=== PATIENT | female | born 1945 | race Caucasian/White ===

== ENCOUNTER → 2016-07-02 | Outpatient (CLI) | payer OTHER | LOC: CIMAGING 09:43 | DX: Z12.31 Encounter for screening mammogram for malignant neoplasm of breast (principal) | CPT/HCPCS: G0202 ==

== ENCOUNTER 2017-03-10 02:13 | Emergency (ER) | payer OTHER ==
[2017-03-10] MEDS ORDERED: ASPIRIN 81 MG CHEWABLE TAB PO ONE (02:15)
--- NOTE | 2017-03-10 02:20 | CPEKG ---
Heart Rate: 87 RR Interval: 690 P-R Interval: 156 QRSD Interval: 86 QT Interval: 368 QTC Interval: 443 P [place]: 56 QRS [place]: 9 T Wave [place]: 55 EKG Severity - NORMAL ECG - EKG Impression: SINUS RHYTHM Electronically Signed By: Marycarmen Alan 10-Mar-2017 04:16:17
[2017-03-10 02:39] LABS: % IMMATURE GRANULYOCYTES 0.7 % (0.0-1.1); ABSOLUTE IMMATURE GRANULOCYTES 0.07 10^3/uL (0.00-0.10); ADD DIFF? NO; ADD MORPH? NO; ADD SCAN? NO; ATYPICAL LYMPHOCYTE FLAG 10 (0-99); FRAGMENT RBC FLAG 0 (0-99); LEFT SHIFT FLG 10 (0-99); LIPEMIA HEMOLYSIS FLAG 80 (0-99); MEAN CELL HEMOGLOBIN 28.1 pg (27.9-34.1); MEAN CELL HEMOGLOBIN CONCENTR. 33.3 g/dL (32.4-36.7); MEAN CELL VOLUME 84.4 fL (81.5-99.8); MEAN PLATELET VOLUME 9.2 fL (8.7-11.7); PLATELET CLUMPS FLAG 10 (0-99); PLATELET COUNT 358 10^3/uL (150-400); RED BLOOD CELL COUNT 4.62 10^6/uL (4.18-5.33)
[2017-03-10 02:53] LABS: ALANINE AMINOTRANSFERASE 48 IU/L (9-52); ALBUMIN 3.5 g/dL (3.5-5.0); ALKALINE PHOSPHATASE 89 IU/L (38-126); ANION GAP 15 mEq/L (8-16); ASPARTATE AMINOTRANSFERASE 23 IU/L (14-46); BILIRUBIN,TOTAL 0.3 mg/dL (0.1-1.4); BILIRUBIN-UNCONJUGATED 0.3 mg/dL (0.0-1.1); CALCIUM 9.1 mg/dL (8.5-10.4); CARBON DIOXIDE 21 mEq/l (22-31); CHLORIDE 104 mEq/L (97-110); CREATININE 0.9 mg/dL (0.6-1.0); GLOMERULAR FILTRATION RATE > 60; GLUCOSE 123 mg/dL (70-100); POTASSIUM 4.4 mEq/L (3.5-5.2); SODIUM 140 mEq/L (134-144); TOTAL PROTEIN 6.7 g/dL (6.3-8.2)
[2017-03-10] MEDS ORDERED: NS 1,000 ML IV ONE (02:56)
[2017-03-10 03:03] LABS: TROPONIN I < 0.012 ng/mL (0.000-0.034)
[2017-03-10] MEDS ORDERED: IOPAMIDOL (ISOVUE 370) 100 ML BTL IV ONE (03:03)
--- NOTE | 2017-03-10 03:03 | EDPHY ---
H & P Stated Complaint: L sided chest pain, SOB that woke her up this AM. Time Seen by Provider: 03/10/17 02:15 HPI/ROS: CC: Chest pain HPI: This 72-year-old female with past medical history of hypertension, gastroesophageal reflux disease, asthma and recent diagnosis of the flu presents to emergency department today with complaints of left-sided chest discomfort that woke her from sleep at 1:15 a.m.. She states she has been coughing quite a bit over the last 2 weeks and the cough has been productive of thick, yellow sputum. The cough has gotten worse over the last couple of days. The chest pain is described as sharp which increases with breathing (7/10). It radiates to the top of her left shoulder. She feels slightly short of breath with this discomfort. The pain is rated at 4/10 at rest. She had a fever when she was diagnosed with the flu 2 weeks ago but that has resolved. She has not had any nausea or vomiting. She has not had diaphoresis. She has had no prior episodes of this sort. She has no prior history of coronary artery disease and no family history of premature coronary artery disease. She did have a lengthy trip to [facility] in January but denies having any leg swelling or pain. REVIEW OF SYSTEMS: Constitutional: No fever, no chills. Eyes: No discharge. ENT: No sore throat. Respiratory: HPI. Cardiac: No palpitations. Gastrointestinal: No abdominal pain, no vomiting. Genitourinary: No dysuria. Musculoskeletal: No back pain. Skin: No rashes. Neurological: No headache. Source: Patient, Family Exam Limitations: No limitations - Personal History Current Tetanus Diphtheria and Acellular Pertussis (TDAP): Unsure - Medical/Surgical History PMH: PMH: Includes Meniere's disease, asthma, hypertension, gastroesophageal reflux disease, allergies PSH: Includes hernia repair, tubal ligation, bowel obstruction, hysterectomy, cosmetic surgery, Osei's neuroma, colonoscopy FH: Her father had congestive heart failure and his 60s but no premature coronary artery disease. Mother had hypertension and dementia Allergies to latex, and peanuts. She was told she had an allergy to penicillin when she was 14 years old. Medication list brought by patient was reviewed. Includes Zyrtec, pantoprazole , Advair, ProAir, lisinopril, bupropion, hydrochlorothiazide, ipratropium bromide, Orthovisc, Astelin, fluticasone, glucosamine, calcium carbonate, MiraLax, Mucinex, fish oil, vitamin-D, probiotic Primary care providers Dr. Anamika Monroe Hx Asthma: Yes Hx Chronic Respiratory Disease: Yes Hx Diabetes: No Hx Cardiac Disease: Yes Hx Renal Disease: No Hx Cirrhosis: No Hx Alcoholism: No Hx HIV/AIDS: No Hx Splenectomy or Spleen Trauma: No Other PMH: hyst, bowel obstruction, HTN, asthma, Osei's neuroma, tubal ligation, hernia, shingles, PNA, depression, GERD - Family History Significant Family History: Heart disease, Hypertension - Social History Smoking Status: Never smoked Alcohol Use: Other (a couple glasses of wine 2-3x/wk) Drug Use: None - Physical Exam Exam: General Appearance: Alert, mild distress. Eyes: Pupils equal and round no pallor or injection. ENT, Mouth: Mucous membranes are slightly dry. Respiratory: There are no retractions, lungs are clear to auscultation. Cardiovascular: Regular rate and rhythm. Gastrointestinal: Abdomen is soft and nontender, no masses, bowel sounds normal. Neurological: Awake and alert, sensory and motor exams grossly normal. Skin: Warm and dry, no rashes. Musculoskeletal: Neck is supple nontender. Extremities are symmetrical, full range of motion. No swelling or erythema. Psychiatric: Patient is oriented X 3, there is no agitation. DIFFERENTIAL DIAGNOSIS: After history and physical exam differential diagnosis was considered for but not limited to: cardiac ischemia, bronchitis, pneumonia , pleurisy, PE Constitutional: Initial Vital Signs Temperature (C) 97.7 F 03/10/17 02:15 Heart Rate 89 03/10/17 02:15 Respiratory Rate 20 03/10/17 02:15 Blood Pressure 178/91 H 03/10/17 02:15 O2 Sat (%) 95 03/10/17 02:15 O2 Delivery Mode Nasal Cannula O2 (L/minute) 2 Allergies/Adverse Reactions: Penicillins Allergy (Verified 03/10/17 02:23) Home Medications: Medication Instructions Recorded Azelastine [Astelin Nasal [place] 1 sprays NASAL BID 08/14/11 (RX)] Fluticasone Nasal [Flonase Nasal 08/14/11 [place] (RX)] Fluticasone/Salmeter 250/50Mcg 1 inh IH BID 08/14/11 [Advair 250/50 (RX)] Lisinopril [Zestril 2.5 mg (*)] 08/14/11 Pantoprazole Sodium [Protonix 40mg 08/14/11 (RX)] buPROPion [Wellbutrin (RX)] 08/14/11 Albuterol Sulfate [Proair Hfa] 8.5 gm IH 03/10/17 Calcium Carb W/Vit D [Calcium Carb 03/10/17 W/Vit D 500/200 (*)] Cetirizine [ZyrTEC 10 mg (*)] 10 mg PO DAILY 03/10/17 Cholecalciferol (Vitamin D3) 03/10/17 [Vitamin D3] Doxycycline Hyclate [Vibramycin 100 mg PO BID 10 Days #18 cap 03/10/17 100 MG (*)] Fluticasone/Salmeter 250/50Mcg 03/10/17 [Advair 250/50 (*)] Glucosamine Sulfate Dipot Chlr 03/10/17 [Glucosamine] Hyaluronate Sodium [Orthovisc] 03/10/17 Ipratropium [place] [IPRATROPIUM 03/10/17 BROMIDE] L.acidoph,Paracasei, B.lactis 03/10/17 [Probiotic] [place]-3 Fatty Acids/Fish Oil [Fish 03/10/17 Oil 1,000 mg Capsule] Polyethylene Glycol 3350 [Miralax 03/10/17 17 gm (*)] guaiFENesin [Mucinex 600 MG (*)] 03/10/17 Medical Decision Making - Diagnostics EKG Interpretation: Normal sinus rhythm, heart rate 87, no acute ischemic changes. Imaging Results: Chest x-ray shows a possible infiltrate near the left heart border. CTPA: Imaging: Discussed imaging studies w/ call center specialist Radiologist (Verbal report for the CT pulmonary angiogram revealed no pulmonary embolism but was positive for multifocal pneumonia with a minimal left pleural effusion and mucus plugging), I viewed and interpreted images myself ED Course/Re-evaluation: The patient was seen and examined. Vital signs reviewed. Her oxygen saturation was 94% on room air. Her heart rate was in the 80s. Her blood pressure was within normal limits. EKG revealed normal sinus rhythm without acute ischemic changes. Her troponin was normal. Her CBC was only minimally elevated. Her D-dimer was markedly elevated and therefore CT pulmonary angiogram was ordered. There is no PE but it did show multifocal pneumonia with a minimal left pleural effusion a mucous plugging. Her PSI score was 71 which makes her low risk but either a short inpatient stay or outpatient treatment are acceptable recommendations. The patient was offered admission however she declined feeling well enough to go home. She was given a dose of Rocephin in the emergency department, a take-home pack of doxycycline with instructions not to take within 2 hr of her calcium supplements. She was given a prescription for another 18 tablets of doxycycline. For course of 10 days. She will follow up with the primary care provider this week or return to the emergency room sooner if symptoms worsen as discussed. - Data Points Laboratory Results: Laboratory Results 03/10/17 02:20 03/10/17 02:20 03/10/17 03/10/17 03/10/17 02:20 02:20 02:20 WBC 10.63 10^3/uL H 10^3/uL (3.80-9.50) RBC 4.62 10^6/uL 10^6/uL (4.18-5.33) Hgb 13.0 g/dL g/dL (12.6-16.3) Hct 39.0 % % (38.0-47.0) MCV 84.4 fL fL (81.5-99.8) MCH 28.1 pg pg (27.9-34.1) MCHC 33.3 g/dL g/dL (32.4-36.7) RDW 14.0 % % (11.5-15.2) Plt Count 358 10^3/uL 10^3/uL (150-400) MPV 9.2 fL fL (8.7-11.7) Neut % (Auto) 72.7 % % (39.3-74.2) Lymph % (Auto) 17.1 % % (15.0-45.0) [place] % (Auto) 8.3 % % (4.5-13.0) Eos % (Auto) 0.8 % % (0.6-7.6) Baso % (Auto) 0.4 % % (0.3-1.7) Nucleat RBC Rel Count 0.0 % % (0.0-0.2) Absolute Neuts (auto) 7.74 10^3/uL H 10^3/uL (1.70-6.50) Absolute Lymphs (auto) 1.82 10^3/uL 10^3/uL (1.00-3.00) Absolute Monos (auto) 0.88 10^3/uL H 10^3/uL (0.30-0.80) Absolute Eos (auto) 0.08 10^3/uL 10^3/uL (0.03-0.40) Absolute Basos (auto) 0.04 10^3/uL 10^3/uL (0.02-0.10) Absolute Nucleated RBC 0.00 10^3/uL 10^3/uL (0-0.01) Immature Gran % 0.7 % % (0.0-1.1) Immature Gran # 0.07 10^3/uL 10^3/uL (0.00-0.10) D-Dimer 6.45 ug/mLFEU H ug/mLFEU (0.00-0.50) Sodium 140 mEq/L mEq/L (134-144) Potassium 4.4 mEq/L mEq/L (3.5-5.2) Chloride 104 mEq/L mEq/L (97-110) Carbon Dioxide 21 mEq/l L mEq/l (22-31) Anion Gap 15 mEq/L mEq/L (8-16) BUN 12 mg/dL mg/dL (7-23) Creatinine 0.9 mg/dL mg/dL (0.6-1.0) Estimated GFR > 60 Glucose 123 mg/dL H mg/dL (70-100) Calcium 9.1 mg/dL mg/dL (8.5-10.4) Total Bilirubin 0.3 mg/dL mg/dL (0.1-1.4) Conjugated Bilirubin 0.0 mg/dL mg/dL (0.0-0.5) Unconjugated Bilirubin 0.3 mg/dL mg/dL (0.0-1.1) AST 23 IU/L IU/L (14-46) ALT 48 IU/L IU/L (9-52) Alkaline Phosphatase 89 IU/L IU/L (38-126) Troponin I < 0.012 ng/mL ng/mL (0.000-0.034) NT-Pro-B Natriuret Pep 96 pg/mL pg/mL (0-125) Total Protein 6.7 g/dL g/dL (6.3-8.2) Albumin 3.5 g/dL g/dL (3.5-5.0) Lipase 110 IU/L IU/L (23-300) Medications Given: Discontinued Medications Aspirin (Aspirin) 324 mg PO EDNOW ONE Stop: 03/10/17 02:16 Last Admin: 03/10/17 02:28 Dose: 324 mg Sodium Chloride (Ns) 1,000 mls @ 0 mls/hr IV ONCE ONE; Wide Open PRN Reason: Protocol Stop: 03/10/17 02:57 Last Admin: 03/10/17 03:00 Dose: 1,000 mls Departure - Departure Disposition: Home, Routine, Self-Care Clinical Impression: Pneumonia Qualifiers: Pneumonia type: due to unspecified organism Laterality: left Lung location: lower lobe of lung Qualified Code(s): J18.1 - Lobar pneumonia, unspecified organism Condition: Good Instructions: Community Acquired Pneumonia (ED) Additional Instructions: Take the doxycyline as directed. Do not take it within two hours of calcium supplements. Follow up with your doctor this week. Return to the ED immediately if symptoms worsen as discussed. Referrals: Anamika Monroe MD [Medical Doctor] - 2-3 days without fail Prescriptions: Doxycycline Hyclate [Vibramycin 100 MG (*)] 100 mg PO BID 10 Days #18 cap
[2017-03-10] MEDS ORDERED: DOXYCYCLINE 100 MG PREPACK#2 BTL TAKEHOME ONE ×2 (04:05→04:23)
[2017-03-10] MEDS ORDERED: NS 100 ML BAG IV ONE (04:08)
[2017-03-10] MEDS ORDERED: cefTRIAXone 1 GM VIAL ONE (04:08)
[2017-03-10 04:36] VITALS: BP 131/72; PULSE 79; RESP 18; TEMP 97.9; O2SAT 95
== END 2017-03-10 04:57 | disposition home or self-care (01) ==
LOC: CED 02:13
DX: J18.9 Pneumonia, unspecified organism (principal); I10 Essential (primary) hypertension; J45.909 Unspecified asthma, uncomplicated; E86.9 Volume depletion, unspecified
CPT/HCPCS: 71020; 71275; 93005; 96361; 96365; 99285; J0696; Q9967; 80048-PO; 80076-PO; 83690-PO; 83880-PO; 84484-PO; 85025-PO; 85378-PO

== ENCOUNTER 2017-03-16 17:15 | Emergency (ER) | payer OTHER ==
[2017-03-16 17:31] VITALS: TEMP 98.4; O2SAT 96
[2017-03-16] MEDS ORDERED: NS 1,000 ML IV ONE (17:50)
[2017-03-16 18:02] LABS: % IMMATURE GRANULYOCYTES 0.4 % (0.0-1.1); ABSOLUTE IMMATURE GRANULOCYTES 0.04 10^3/uL (0.00-0.10); ADD DIFF? NO; ADD MORPH? NO; ADD SCAN? NO; ATYPICAL LYMPHOCYTE FLAG 0 (0-99); FRAGMENT RBC FLAG 0 (0-99); HEMATOCRIT 40.8 % (38.0-47.0); HEMOGLOBIN 14.1 g/dL (12.6-16.3); LEFT SHIFT FLG 10 (0-99); LIPEMIA HEMOLYSIS FLAG 90 (0-99); MEAN CELL HEMOGLOBIN CONCENTR. 34.6 g/dL (32.4-36.7); MEAN CELL VOLUME 83.8 fL (81.5-99.8); MEAN PLATELET VOLUME 8.9 fL (8.7-11.7); PLATELET CLUMPS FLAG 0 (0-99); PLATELET COUNT 416 10^3/uL (150-400); RED BLOOD CELL COUNT 4.87 10^6/uL (4.18-5.33); RED CELL DISTRIBUTION WIDTH 14.2 % (11.5-15.2)
--- NOTE | 2017-03-16 18:03 | CPEKG ---
Heart Rate: 70 RR Interval: 857 P-R Interval: 160 QRSD Interval: 84 QT Interval: 416 QTC Interval: 449 P [place]: 51 QRS [place]: 4 T Wave [place]: 36 EKG Severity - NORMAL ECG - EKG Impression: SINUS RHYTHM Electronically Signed By: Sal Morales 18-Mar-2017 08:56:15
[2017-03-16 18:09] LABS: SEDIMENTATION RATE 36 MM/HR (0-30)
[2017-03-16 18:21] LABS: ALANINE AMINOTRANSFERASE 60 IU/L (9-52); ALBUMIN 3.7 g/dL (3.5-5.0); ALKALINE PHOSPHATASE 115 IU/L (38-126); ANION GAP 17 mEq/L (8-16); ASPARTATE AMINOTRANSFERASE 45 IU/L (14-46); BILIRUBIN,TOTAL 0.5 mg/dL (0.1-1.4); CALCIUM 9.2 mg/dL (8.5-10.4); CARBON DIOXIDE 18 mEq/l (22-31); CHLORIDE 103 mEq/L (97-110); CREATININE 0.8 mg/dL (0.6-1.0); GLOMERULAR FILTRATION RATE > 60; GLUCOSE 105 mg/dL (70-100); MAGNESIUM 1.8 mg/dL (1.6-2.3); POTASSIUM 4.5 mEq/L (3.5-5.2); SODIUM 138 mEq/L (134-144)
[2017-03-16 18:26] LABS: TROPONIN I 0.012 ng/mL (0.000-0.034)
[2017-03-16 19:28] VITALS: BP 191/77; PULSE 70; RESP 16
[2017-03-16] MEDS ORDERED: OXYCODONE/APAP 5/325MG PREPACK#4 BTL TAKEHOME ONE (19:28)
--- NOTE | 2017-03-16 19:29 | EDPHY ---
H & P Time Seen by Provider: 03/16/17 17:20 HPI/ROS: 72-year-old female presents complaining of left upper back pain, worse with movement worse with deep inspiration, she states she was recently diagnosed with pneumonia, on March 10, 2017. She states her energy has been improved but she has had increased pain in her upper back, especially if she coughs or laughs or with certain movements. No shortness of breath. Patient had chest x-ray consistent with bilateral pneumonia, and CT thorax negative for pulmonary embolus and consistent with pneumonia on March 10. No leg swelling, no calf pain. Despite her illness patient has been quite active this week including attending to [employer] and going for walks. No fever or chills today Review of systems General no fever no chills no weakness HEENT no eye pain no eye discharge. No eye redness, no sore throat Respiratory no cough, no shortness of breath Cardiac no chest pain, no peripheral edema GI no abdominal pain, no diarrhea, no constipation, no nausea, no vomiting no flank pain, no hematuria, no dysuria Musculoskeletal positive myalgias, no joint pain Heme no easy bruising, no easy bleeding Endo no polyuria, no polydipsia Skin no rashes, no pruritus Neuro no syncope, no dizziness, no headaches Psych is no suicidal ideation, no homicidal ideation Past Medical/Surgical History: Hypertension GERD Depression Social History: Denies alcohol or drug use Smoking Status: Never smoked Physical Exam: 72-year-old female alert and oriented no acute distress nontoxic appearance afebrile HEENT atraumatic normocephalic, extraocular muscles intact, anicteric Oropharynx negative for erythema negative exudate, tolerating her own secretions Neck supple no meningismus Lungs clear to auscultation bilaterally, no wheezing no rhonchi Heart regular rate and rhythm without murmur rub or gallop Abdomen nondistended normoactive bowel sounds soft nontender Back no CVA tenderness, no step-offs, no spinal tenderness Left upper back pain worse with left arm movement, and deep inspiration Extremities no cyanosis clubbing or edema Neuro alert and oriented, no focal deficits Constitutional: Initial Vital Signs Temperature (C) 36.9 C 03/16/17 17:28 Heart Rate 82 03/16/17 17:28 Respiratory Rate 20 03/16/17 17:28 Blood Pressure 149/103 H 03/16/17 17:28 O2 Sat (%) 96 03/16/17 17:28 O2 Delivery Mode Room Air Allergies/Adverse Reactions: Penicillins Allergy (Verified 03/16/17 17:38) Home Medications: Medication Instructions Recorded Azelastine [Astelin Nasal [place] 1 sprays NASAL BID 08/14/11 (RX)] Fluticasone Nasal [Flonase Nasal 08/14/11 [place] (RX)] Fluticasone/Salmeter 250/50Mcg 1 inh IH BID 08/14/11 [Advair 250/50 (RX)] Lisinopril [Zestril 2.5 mg (*)] 08/14/11 Pantoprazole Sodium [Protonix 40mg 08/14/11 (RX)] buPROPion [Wellbutrin (RX)] 08/14/11 Albuterol Sulfate [Proair Hfa] 8.5 gm IH 03/10/17 Calcium Carb W/Vit D [Calcium Carb 03/10/17 W/Vit D 500/200 (*)] Cetirizine [ZyrTEC 10 mg (*)] 10 mg PO DAILY 03/10/17 Cholecalciferol (Vitamin D3) 03/10/17 [Vitamin D3] Doxycycline Hyclate [Vibramycin 100 mg PO BID 10 Days #18 cap 03/10/17 100 MG (*)] Fluticasone/Salmeter 250/50Mcg 03/10/17 [Advair 250/50 (*)] Glucosamine Sulfate Dipot Chlr 03/10/17 [Glucosamine] Hyaluronate Sodium [Orthovisc] 03/10/17 Ipratropium [place] [IPRATROPIUM 03/10/17 BROMIDE] L.acidoph,Paracasei, B.lactis 03/10/17 [Probiotic] [place]-3 Fatty Acids/Fish Oil [Fish 03/10/17 Oil 1,000 mg Capsule] Polyethylene Glycol 3350 [Miralax 03/10/17 17 gm (*)] guaiFENesin [Mucinex 600 MG (*)] 03/10/17 oxyCODONE/APAP 5/325 [Percocet 1 - 2 tab PO Q12H PRN #12 tab 03/16/17 5/325 (*)] Medical Decision Making - Diagnostics Imaging Results: Imaging Impressions Chest X-Ray 03/16/17 17:47 Impression: Partial interval resolution of bibasal patchy infiltrates.. ED Course/Re-evaluation: Patient seen and evaluated for left upper back pain left-sided chest pain, with recent history of left-sided chest pain diagnosed with pneumonia EKG normal sinus rhythm Troponin negative Repeat chest x-ray compared to chest x-ray from 03/10/2017 Partial resolution of pneumonia CBC within normal limits ESR 36, slightly elevated CMP bicarb 18 Lactate negative Patient given 1 L normal saline, morphine 4 mg IV push with moderate relief of pain. Impression Pneumonia Musculoskeletal pain Plan Percocet Rx short-term Follow-up with PCP Continue current antibiotics - Data Points Laboratory Results: Laboratory Results 03/16/17 Unknown 03/16/17 Unknown 03/16/17 03/16/17 03/16/17 Unknown Unknown 19:10 WBC 10.22 10^3/uL H 10^3/uL (3.80-9.50) RBC 4.87 10^6/uL 10^6/uL (4.18-5.33) Hgb 14.1 g/dL g/dL (12.6-16.3) Hct 40.8 % % (38.0-47.0) MCV 83.8 fL fL (81.5-99.8) MCH 29.0 pg pg (27.9-34.1) MCHC 34.6 g/dL g/dL (32.4-36.7) RDW 14.2 % % (11.5-15.2) Plt Count 416 10^3/uL H 10^3/uL (150-400) MPV 8.9 fL fL (8.7-11.7) Neut % (Auto) 72.2 % % (39.3-74.2) Lymph % (Auto) 18.9 % % (15.0-45.0) [place] % (Auto) 6.7 % % (4.5-13.0) Eos % (Auto) 1.4 % % (0.6-7.6) Baso % (Auto) 0.4 % % (0.3-1.7) Nucleat RBC Rel Count 0.0 % % (0.0-0.2) Absolute Neuts (auto) 7.39 10^3/uL H 10^3/uL (1.70-6.50) Absolute Lymphs (auto) 1.93 10^3/uL 10^3/uL (1.00-3.00) Absolute Monos (auto) 0.68 10^3/uL 10^3/uL (0.30-0.80) Absolute Eos (auto) 0.14 10^3/uL 10^3/uL (0.03-0.40) Absolute Basos (auto) 0.04 10^3/uL 10^3/uL (0.02-0.10) Absolute Nucleated RBC 0.00 10^3/uL 10^3/uL (0-0.01) Immature Gran % 0.4 % % (0.0-1.1) Immature Gran # 0.04 10^3/uL 10^3/uL (0.00-0.10) ESR 36 MM/HR H MM/HR (0-30) VBG Lactic Acid 1.1 mmol/L mmol/L (0.7-2.1) Sodium 138 mEq/L mEq/L (134-144) Potassium 4.5 mEq/L mEq/L (3.5-5.2) Chloride 103 mEq/L mEq/L (97-110) Carbon Dioxide 18 mEq/l L mEq/l (22-31) Anion Gap 17 mEq/L H mEq/L (8-16) BUN 12 mg/dL mg/dL (7-23) Creatinine 0.8 mg/dL mg/dL (0.6-1.0) Estimated GFR > 60 Glucose 105 mg/dL H mg/dL (70-100) Calcium 9.2 mg/dL mg/dL (8.5-10.4) Magnesium 1.8 mg/dL mg/dL (1.6-2.3) Total Bilirubin 0.5 mg/dL mg/dL (0.1-1.4) AST 45 IU/L IU/L (14-46) ALT 60 IU/L H IU/L (9-52) Alkaline Phosphatase 115 IU/L IU/L (38-126) Creatine Kinase 51 IU/L IU/L (0-156) Troponin I 0.012 ng/mL ng/mL (0.000-0.034) Total Protein 7.0 g/dL g/dL (6.3-8.2) Albumin 3.7 g/dL g/dL (3.5-5.0) Medications Given: Discontinued Medications Sodium Chloride (Ns) 1,000 mls @ 0 mls/hr IV ONCE ONE PRN Reason: Wide Open Stop: 03/16/17 17:51 Last Admin: 03/16/17 18:19 Dose: 1,000 mls Morphine Sulfate (Morphine) 4 mg IVP EDNOW ONE Stop: 03/16/17 17:51 Last Admin: 03/16/17 18:21 Dose: 4 mg Oxycodone/Acetaminophen (Percocet 5/325mg [place]#4) 1 btl TAKEHOME EDNOW ONE Stop: 03/16/17 19:29 Last Admin: 03/16/17 20:07 Dose: 1 btl Departure - Departure Disposition: Home, Routine, Self-Care Clinical Impression: Pneumonia, Myalgia Condition: Good Instructions: Musculoskeletal Pain (ED), Pneumonia (ED) Referrals: Anamika Monroe MD [Primary Care Provider] - As per Instructions Prescriptions: oxyCODONE/APAP 5/325 [Percocet 5/325 (*)] 1 - 2 tab PO Q12H PRN #12 tab PRN Reason: Pain, Severe
== END 2017-03-16 19:50 | disposition home or self-care (01) ==
LOC: CED 17:15
DX: M79.1 Myalgia (principal); J18.9 Pneumonia, unspecified organism; I10 Essential (primary) hypertension
CPT/HCPCS: 71020-PO; 80053-PO; 82550-PO; 83605-PO; 83735-PO; 84484-PO; 85025-PO; 85652-PO; 96374

== ENCOUNTER → 2017-08-11 | Outpatient (CLI) | payer OTHER | LOC: CIMAGING 10:16 | PROVIDERS: ATTEND Family Medicine | DX: Z12.31 Encounter for screening mammogram for malignant neoplasm of breast (principal) ==

== ENCOUNTER → 2017-08-13 | Outpatient (CLI) | payer OTHER | LOC: CIMAGING 13:04 | PROVIDERS: ATTEND Family Medicine | DX: R92.8 Other abnormal and inconclusive findings on diagnostic imaging of breast (principal) ==

== ENCOUNTER → 2018-08-12 | Outpatient (CLI) | payer OTHER | LOC: CIMAGING 12:44 | PROVIDERS: ATTEND Family Medicine | DX: Z12.31 Encounter for screening mammogram for malignant neoplasm of breast (principal) ==